=== PATIENT | male | born 2000 | race Caucasian/White ===

== ENCOUNTER 2021-04-10 07:23 | Outpatient (CLI) | payer OTHER | END 2021-04-10 07:24 | disposition home or self-care (01) | LOC: LAB 07:23 | PROVIDERS: ATTEND Emergency Medicine Pediatric Emergency Medicine | DX: Z03.818 Encounter for observation for suspected exposure to other biological agents ruled out (principal) ==

== ENCOUNTER 2021-04-13 07:30 | Outpatient (CLI) | payer OTHER | END 2021-04-13 07:31 | disposition home or self-care (01) | LOC: LAB 07:30 | PROVIDERS: ATTEND Emergency Medicine Pediatric Emergency Medicine | DX: Z03.818 Encounter for observation for suspected exposure to other biological agents ruled out (principal) ==